=== PATIENT | female | born 1955 | race Two or more races ===

== ENCOUNTER 2018-12-25 00:13 | Inpatient (IN) | payer SELFPAY ==
[~2018-12-25] VITALS: Ht 162.6 cm; Wt 90.8 kg
[2018-12-25] MEDS ORDERED: RIVA15T PO (00:19)
[2018-12-25] MEDS ORDERED: ASPI-556 PO (00:19)
[2018-12-25] MEDS ORDERED: HYDR25TA PO (00:19)
[2018-12-25] MEDS ORDERED: LOSA50TA64 PO (00:19)
[2018-12-25] MEDS ORDERED: AMLO5TAB9 PO (00:19)
[2018-12-25] MEDS ORDERED: ATOR20TA86 PO (00:19)
[2018-12-25 00:29] LABS: GLUCOSE,POINT OF CARE 237 MG/DL (70-110)
[2018-12-25] MEDS ORDERED: AmLODIPine BESYLATE 5 MG TABLET PO ONE (00:45)
[2018-12-25] MEDS ORDERED: METOPROLOL TARTRATE 5 MG/5 ML VIAL IVP ONE (00:45)
[2018-12-25 00:53] LABS: APPEARANCE,URINE CLEAR (CLEAR); BILIRUBIN,URINE NEGATIVE (NEGATIVE); GLUCOSE, URINE (UA) 250 mg/dL (NEGATIVE); KETONES,URINE NEGATIVE (NEGATIVE); LEUKOCYTE ESTERASE ,URINE NEGATIVE (NEGATIVE); NITRATE,URINE NEGATIVE (NEGATIVE); OCCULT BLOOD,URINE NEGATIVE (NEGATIVE); PH,URINE 7.5 (5.0-8.0); PROTEIN,URINE TRACE (NEGATIVE); UROBILINOGEN,URINE 0.2 mg/dL (<=1.0)
[2018-12-25 00:53] LABS: BASOPHILS % (AUTO) 0.7 % (0.0-2.0); EOSINOPHILS % (AUTO) 3.2 % (1.0-6.0); HEMATOCRIT 43.4 % (36-46); HEMOGLOBIN 14.2 g/dL (12.0-16.0); LYMPHOCYTES # (AUTO) 3.5 K/uL (1.0-4.8); LYMPHOCYTES % (AUTO) 32.6 % (22.0-44.0); MEAN CORPUSCULAR HEMOGLOBIN 30.3 pg (26.0-34.0); MEAN CORPUSCULAR HGB CONC 32.8 G/dL (31.0-37.0); MEAN CORPUSCULAR VOLUME 93 fL (80-100); MONOCYTES # (AUTO) 0.7 K/uL (0.1-1.0); MONOCYTES % (AUTO) 6.2 % (2.0-9.0); NEUTROPHILS # (AUTO) 6.1 K/uL (1.8-7.7); NEUTROPHILS % (AUTO) 57.3 % (40.0-70.0); PLATELET COUNT (AUTO) 269 K/uL (150-450); RED BLOOD CELL COUNT(AUTO) 4.69 MIL/uL (4.00-5.20); RED CELL DISTRIBUTION WIDTH 14.1 % (11.5-14.5)
[2018-12-25 00:59] LABS: BACTERIA,URINE None Seen /HPF (None Seen); RBC,URINE None Seen /HPF (0-2); SQUAMOUS EPITHELIAL CELL,UR Rare /LPF (None Seen); WBC,URINE 0-2 /HPF (0-5)
[2018-12-25 00:59] LABS: CALCIUM, TOTAL 9.3 mg/dL (8.8-10.5); CREATININE 1.02 mg/dL (0.60-1.30)
[2018-12-25 01:03] LABS: INR 0.9 (0.9-1.1); PROTHROMBIN TIME 9.9 SEC (9.4-11.6)
[2018-12-25 01:06] LABS: ALBUMIN 3.8 g/dL (3.4-5.0); BILIRUBIN,TOTAL 0.5 mg/dL (0.1-1.0)
[2018-12-25] MEDS ORDERED: ACETAMINOPHEN 325 MG TABLET PO PRN ×2 (03:30→14:45)
[2018-12-25] MEDS ORDERED: ONDANSETRON HCL 4 MG/2 ML VIAL IVP PRN ×2 (03:30→14:45)
[2018-12-25] MEDS ORDERED: 0.9% SODIUM CHLORIDE 10 ML SYRINGE IVP PRN (03:30)
[2018-12-25] MEDS ORDERED: ZOLPIDEM TARTRATE 10 MG TABLET PO PRN (14:45)
[2018-12-25] MEDS ORDERED: MORPHINE SULFATE 2 MG/ML SYRINGE IVP PRN (14:45)
[2018-12-25] MEDS ORDERED: NITROGLYCERIN 0.4 MG SUBLINGUAL TABLET #25 SL PRN (14:45)
[2018-12-25] MEDS ORDERED: NITROGLYCERIN 2% (1 GM=INCH) PACKET TP PRN (14:45)
[2018-12-25] MEDS ORDERED: POTASSIUM CHL 10 MEQ/WATER 50 ML IV PRN (15:00)
[2018-12-25] MEDS ORDERED: DEXTROSE 50%-WATER 25 GM/50 ML SYRINGE IVP PRN (15:00)
[2018-12-25] MEDS: ATORVASTATIN CALCIUM 20 MG TABLET PO SCH (15:39)
[2018-12-25] MEDS: LOSARTAN POTASSIUM 50 MG TABLET PO SCH (15:39)
[2018-12-25] MEDS: HYDROCHLOROTHIAZIDE 25 MG TABLET PO SCH (15:39)
[2018-12-25] MEDS: AmLODIPine BESYLATE 5 MG TABLET PO SCH (15:40)
[2018-12-25] MEDS: POTASSIUM CHLORIDE 20 MEQ ER TABLET PO PRN (15:40)
[2018-12-25] MEDS: ASPIRIN 81 MG EC TABLET PO SCH (15:40)
[2018-12-25 16:51] VITALS: BP 152/81
[2018-12-25] MEDS: RIVAROXABAN 15 MG TABLET PO SCH (18:12)
[2018-12-25 19:38] VITALS: BP 145/74
[2018-12-25 20:05] LABS: GLUCOMETER DEV NAME(LOC) 5N.2; GLUCOSE,POINT OF CARE 159 MG/DL (70-110)
[2018-12-25] MEDS: INSULIN LISPRO 100 UNITS/ML SQ PRN (21:09)
[2018-12-25 23:35] VITALS: BP 146/81
[2018-12-25 23:35] LABS: GLUCOMETER DEV NAME(LOC) 5N.2; GLUCOSE,POINT OF CARE 171 MG/DL (70-110)
[2018-12-26 04:03] VITALS: BP 149/84
[2018-12-26] MEDS: INSULIN LISPRO 100 UNITS/ML SQ PRN ×2 (05:59→12:08)
[2018-12-26 06:37] LABS: ANION GAP 8 mmol/L (8-16); CALCIUM, TOTAL 8.8 mg/dL (8.8-10.5); CARBON DIOXIDE 30 mmol/L (22-29); CHLORIDE 105 mmol/L (98-107); CHOL/HDL RATIO 2.7 (3.9-5.7); CHOLESTEROL 96 mg/dL (131-200); CREATININE 0.79 mg/dL (0.60-1.30); GLOMERULAR FILTR. RATE CALC > 60 mL/min (>60); GLUCOSE,RANDOM 138 mg/dL (70-110); HDL CHOLESTEROL 35 mg/dL (40-60); LDL CHOL (CALC.) 39 mg/dL (0-130); POTASSIUM 3.3 mmol/L (3.5-5.1); SODIUM SERUM 143 mmol/L (136-145); TRIGLYCERIDES 110 mg/dL (15-150)
[2018-12-26 07:19] LABS: UREA NITROGEN, BLOOD 21 mg/dL (7-18)
[2018-12-26 07:25] VITALS: BP 146/79
[2018-12-26 07:25] LABS: GLUCOMETER DEV NAME(LOC) 5N.2; GLUCOSE,POINT OF CARE 158 MG/DL (70-110)
[2018-12-26] MEDS: LOSARTAN POTASSIUM 50 MG TABLET PO SCH (08:42)
[2018-12-26] MEDS: ATORVASTATIN CALCIUM 20 MG TABLET PO SCH (08:42)
[2018-12-26] MEDS: POTASSIUM CHLORIDE 20 MEQ ER TABLET PO PRN (08:42)
[2018-12-26] MEDS: ASPIRIN 81 MG EC TABLET PO SCH (08:43)
[2018-12-26] MEDS: RIVAROXABAN 15 MG TABLET PO SCH (08:43)
[2018-12-26] MEDS: AmLODIPine BESYLATE 5 MG TABLET PO SCH (08:43)
[2018-12-26] MEDS: HYDROCHLOROTHIAZIDE 25 MG TABLET PO SCH (08:43)
[2018-12-26] MEDS ORDERED: DOCUSATE SODIUM 100 MG CAPSULE PO SCH (09:00)
[2018-12-26 11:35] VITALS: BP 148/77
[2018-12-26] MEDS ORDERED: POTASSIUM CHL 10 MEQ/WATER 50 ML IV PRN (12:30)
[2018-12-26] MEDS ORDERED: POTASSIUM CHLORIDE 20 MEQ ER TABLET PO PRN (12:30)
[2018-12-26 13:04] LABS: GLUCOMETER DEV NAME(LOC) 5N.2; GLUCOSE,POINT OF CARE 152 MG/DL (70-110)
[2018-12-26 15:40] VITALS: BP 141/78
[2018-12-26 19:19] VITALS: BP 151/86
[2018-12-26] MEDS ORDERED: CARVEDILOL 3.125 MG TABLET PO SCH (21:00)
[2018-12-27 01:59] LABS: GLUCOMETER DEV NAME(LOC) 5N.1; GLUCOSE,POINT OF CARE 180 MG/DL (70-110)
[2018-12-27 01:59] LABS: GLUCOMETER DEV NAME(LOC) 5N.2; GLUCOSE,POINT OF CARE 138 MG/DL (70-110)
[2018-12-27] MEDS ORDERED: RIVAROXABAN 20 MG TABLET PO SCH (18:00)
== END 2018-12-26 23:00 | disposition left against medical advice (07) | DRG 291 ==
LOC: EMS 00:13 → 5S 16:02
PROVIDERS: ADMIT Internal Medicine; ATTEND Internal Medicine
DX: I11.0 Hypertensive heart disease with heart failure (principal); I50.31 Acute diastolic (congestive) heart failure; I24.9 Acute ischemic heart disease, unspecified; E11.65 Type 2 diabetes mellitus with hyperglycemia; E87.6 Hypokalemia; E66.9 Obesity, unspecified; E78.00 Pure hypercholesterolemia, unspecified; I48.0 Paroxysmal atrial fibrillation; E78.5 Hyperlipidemia, unspecified; I25.2 Old myocardial infarction; Z82.49 Family history of ischemic heart disease and other diseases of the circulatory system; Z83.3 Family history of diabetes mellitus; Z90.710 Acquired absence of both cervix and uterus; Z95.5 Presence of coronary angioplasty implant and graft; Z98.891 History of uterine scar from previous surgery; Z79.82 Long term (current) use of aspirin; Z79.899 Other long term (current) drug therapy; Z68.34 Body mass index [BMI] 34.0-34.9, adult
CPT/HCPCS: 84132; 93005; 93306; G0378; J3490